=== PATIENT | male | born 1965 | race Caucasian/White ===

== ENCOUNTER 2016-08-05 19:01 | Emergency (ER) | payer OTHER ==
[~2016-08-05] VITALS: Ht 172.7 cm; Wt 78.0 kg
[~2016-08-05 19:01] MED LIST: AMLODIPINE10 MG PO; FLEXERIL PO; LISINOPRIL20 M1 PO; METOPROL TAR25 MG PO; METOPROLOL SUCC25 MG PO; MULTIVITAMI1 PO; NAPROSYN500 MG PO; NO HOME MEDS; VENLAFAXINE37.5 M2 PO
[2016-08-05] MEDS ORDERED: LISINOPRIL10 MG PO (19:38)
[2016-08-05] MEDS ORDERED: BAYER CHEWABLE81 MG PO (19:38)
[2016-08-05 20:35] LABS: HEMATOCRIT 46.4 % (39.0-50.0); HEMOGLOBIN 16.3 g/dl (14.0-18.0); IMMATURE GRANULOCYTES 0.3 % (0.0-1.0); MEAN CELL VOLUME 94.5 fL CALC (80.0-100.0); MEAN CORPUSCULAR HGB 33.2 pG CALC (26.0-32.0); MEAN CORPUSCULAR HGB CONC 35.1 g/L CALC (32.0-36.0); NEUT# 5.68 thou/uL (1.82-7.42); RED BLOOD COUNT 4.91 mill/uL (4.70-6.10); RED CELL DISTRI WIDTH 11.8 % (11.5-15.5)
[2016-08-05 20:55] LABS: ALBUMIN 4.6 g/dL (3.2-5.0); ALKALINE PHOSPHATASE 105 u/l (38-126); ANION GAP 15 (6-22 (CALC)); BILIRUBIN, TOTAL 0.8 mg/dL (0.0-1.4); BUN 13 mg/dL (9-20); BUN/CREATININE RATIO 17 (12-20 (CALC)); CALCIUM 10.1 mg/dL (8.4-10.2); CARBON DIOXIDE 27 mmol/l (22-30); CHLORIDE 104 mmol/l (95-108); CREATININE 0.8 mg/dL (0.7-1.3); GFR > 60 ML/MIN (>=60 (CALC)); GFR FOR AFR.AMER. > 60 ML/MIN (>=60 (CALC)); GLUCOSE 71 mg/dL (75-110); POTASSIUM 4.2 mmol/l (3.5-5.1); SGOT/AST 41 u/l (17-59); SGPT/ALT 68 u/l (21-72); SODIUM 142 mmol/l (137-146); TOTAL PROTEIN 7.6 g/dL (6.3-8.2)
[2016-08-05 21:08] LABS: MYOGLOBIN 50 ng/mL (0 - 121)
[2016-08-06 01:00] VITALS: BP 141/67
== END 2016-08-06 01:15 | DRG 149 ==
LOC: ED 19:01
PROVIDERS: Emergency Medicine
DX: R42 Dizziness and giddiness (principal)